=== PATIENT | female | born 1995 | race Caucasian/White ===

== ENCOUNTER 2017-05-27 16:16 | Emergency (ER) | payer BC ==
--- NOTE | ~2017-05-27 | ER ---
PATIENT'S NAME: MAURA DONOVAN [facility] AGE: 22 Y [address] ROOM: [place] [address] LOCATION: [facility] ADMIT DATE: 05/27/2017 ER/Outpatient Report DISCHARGE DATE: 05/27/2017 FAMILY PHYSICIAN: Alphonse Best MD ATTENDING PHYSICIAN: Joseph Hurd Time of Arrival: 1619 hours. Time of Evaluation: 1623 hours. SUBJECTIVE CHIEF COMPLAINT: Left arm laceration. HISTORY OF PRESENT ILLNESS: The patient arrives via private auto to the [facility] Emergency Department complaining of a left forearm laceration. She is a pleasant 22- year-old female, who was moving a mirror from her home into a moving truck, it slipped and she now has a 3.5 cm laceration to the anterior aspect of her forearm. Horizontal. Full-thickness with adipose tissue readily available, but no tendinous damage obviously at this time. Denies any numbness or tingling. Feels she has maintained full use of her hands bilaterally. Last tetanus shot was last year. PERTINENT REVIEW OF SYSTEMS: All systems reviewed by me and negative unless otherwise stated in the HPI. PAST MEDICAL HISTORY: The patient is 6 months' and on her first child. No complications with her . PAST SURGICAL HISTORY: Denied by the patient. Recent pertinent was vaginal without complication. MEDICATIONS: Include only a vitamin. ALLERGIES: NO KNOWN DRUG ALLERGIES. SOCIAL HISTORY: Denies smoking. Vegan diet. OBJECTIVE: PATIENT'S NAME: MAURA DONOVAN [facility] AGE: 22 Y [address] ROOM: [place] [address] LOCATION: [facility] ADMIT DATE: 05/27/2017 ER/Outpatient Report DISCHARGE DATE: 05/27/2017 FAMILY PHYSICIAN: Alphonse Best MD ATTENDING PHYSICIAN: Joseph Hurd VITAL SIGNS: Height 5 feet 8 inches, weight 57.3 kg, blood pressure 136/76, pulse 59, respirations 14 per minute, temperature 97.3 degrees Fahrenheit taken with TemporalScanner, SpO2 is 97 degrees on room air. Pain scale 3/10. GENERAL: The patient is well developed, well nourished, in no acute distress. Calm, alert, and oriented to person, place, and time. HEENT: Head is atraumatic and normocephalic. Eyes, conjunctivae clear bilaterally. No discharge. Pupils are PERRLA bilaterally. EOMFI bilaterally. No nystagmus. NECK: Supple and without lymphadenopathy. Trachea midline. No JVD. Full range of motion of the neck without pain. LUNGS: Clear to auscultation bilaterally. No wheezes, crackles, rhonchi, or stridor. Normal respiratory effort. HEART: Regular rate and rhythm. No S3, S4, or extra sounds. EXTREMITIES: Show a horizontal 3.5 cm laceration full thickness into the adipose tissue, but not into the connective tissue of tendons on her left anterior wrist. Laceration itself is about 5.5 cm long, but the gaping portion is only 3.5 cm. No distal numbness or tingling. No clubbing, cyanosis, or edema. Full range of motion distal to the injury in the hand and digits. +2/4 pulses at the radius distal to injury. Capillary refill less than 2 seconds at the nail beds distal to injury. ASSESSMENT: Left forearm laceration. PLAN: The patient verbalized consent for laceration repair after discussion of procedure. 4 mL of 1% lidocaine with epinephrine was infiltrated in the local tissue around the laceration site. Once adequate anesthesia was established, the area was cleaned with povidone iodine x3 using expanding concentric circles. Sterile fenestrated drape then placed over the top of the lesion. The wound was irrigated with 50 mL of sterile saline. No obvious foreign bodies retained in the wound. All gross contamination was gone prior to placement of sutures. Reapproximated the wound edges using 4-0 Prolene and running suture. Care was taken not to strangulate the edges. Dressed the wound with bacitracin and sterile gauze. Wrapped in Coban. The patient tolerated procedure well. Tetanus booster is current, and no booster needed at this time. Reviewed aftercare in detail with the patient. Provided wound care handout as well. Advised her to follow up with her primary care provider in the next 10 days for suture removal. Reviewed signs and symptoms of infection and inflammation in detail with the patient, and she should return sooner should any concerns arise. She verbalized understanding. Take all medications as prescribed. Discussed med risks, side effects, and benefits in detail with the patient. Give plenty of rest and liquids. Take Tylenol or ibuprofen as directed for fever or discomfort unless allergic, PATIENT'S NAME: MAURA DONOVAN [facility] AGE: 22 Y [address] ROOM: [place], [place] [address] LOCATION: [facility] ADMIT DATE: 05/27/2017 ER/Outpatient Report DISCHARGE DATE: 05/27/2017 FAMILY PHYSICIAN: Alphonse Best MD ATTENDING PHYSICIAN: Joseph Hurd asthmatic, or aspirin sensitive. Return to the emergency department or primary care provider if symptoms persist or worsen. The patient was discharged in improved status to the care of her present in the room. JESUS ALBERTO BALTAZAR PA-C FOR MD EDUARDO MA/modl /[id number] d: 05/27/17 2235 t: 06/13/17 0949, OUTPATIENT REPORT
[~2017-05-27 16:16] MED LIST: MOTRIN800 MG PO; PRENATAL 1+1)(P1 TAB PO; SURFAK240 MG PO
== END 2017-05-27 17:10 | disposition disaster alternative care site (69) ==
LOC: GACC 16:16
PROC: 0HQEXZZ Repair Left Lower Arm Skin, External Approach (ICD-10-PCS; principal; 2017-05-27)
DX: S51.812A Laceration without foreign body of left forearm, initial encounter (principal); Z79.899 Other long term (current) drug therapy; W25.XXXA Contact with sharp glass, initial encounter; Y92.009 Unspecified place in unspecified non-institutional (private) residence as the place of occurrence of the external cause

== ENCOUNTER 2017-06-15 08:52 | Emergency (ER) | payer BC ==
--- NOTE | ~2017-06-15 | ER ---
PATIENT'S NAME: MAURA MIGUEL [facility] AGE: 22 Y [address] ROOM: [place] [address] LOCATION: ED ADMIT DATE: 06/15/2017 ER/Outpatient Report DISCHARGE DATE: 06/15/2017 FAMILY PHYSICIAN: Alphonse Best MD ATTENDING PHYSICIAN: Joseph Hurd CHIEF COMPLAINT: Suture removal. HISTORY OF PRESENT ILLNESS: Ms Miguel presents for evaluation for suture removal. Sutures were placed at the 30 of May secondary to forearm lacerations sustained at accident with a mirror. She has not had the opportunity to have them removed and came in for same today. PAST HISTORY: Noncontributory. REVIEW OF SYSTEMS: Negative for pertinent systems except as noted above. PHYSICAL EXAMINATION: VITAL SIGNS: Blood pressure 113/68, pulse 62, respiratory rate 20, temperature 98.4, SpO2 is 96% on room air. Pain is 0. GENERAL: Age appropriate female, in no apparent pain or distress, sitting upright on exam table. NEURO: No obvious abnormalities. HEENT: Normocephalic and atraumatic. Eyes are PERRL. Oropharynx is clear. CHEST: Even and unlabored respirations. Pulse is regular rate. SKIN: Clean, dry, and intact. Suture laceration to the left forearm. No signs of infection. LABORATORY DATA AND X-RAYS: None. IMPRESSION: Suture removal. EMERGENCY DEPARTMENT COURSE: The patient was seen and evaluated. No evidence of infection. Sutures were removed. The patient tolerated the procedure well. She was given wound healing and scar prevention strategies. Discharged in good condition. PATIENT'S NAME: MAURA MIGUEL [facility] AGE: 22 Y [address] ROOM: [place] [address] LOCATION: [facility] ADMIT DATE: 06/15/2017 ER/Outpatient Report DISCHARGE DATE: 06/15/2017 FAMILY PHYSICIAN: Alphonse Best MD ATTENDING PHYSICIAN: Joseph Hurd MD BENEDICT MA/svetlanal /[id number] d: 06/15/17 1142 t: 06/17/17 0656, OUTPATIENT REPORT
== END 2017-06-15 09:20 | disposition disaster alternative care site (69) ==
LOC: GMED 08:52
DX: Z48.02 Encounter for removal of sutures (principal); S51.812D Laceration without foreign body of left forearm, subsequent encounter